=== PATIENT | female | born 1965 | race Caucasian/White ===

== ENCOUNTER 2019-04-18 22:31 | Outpatient (REF) | payer OTHER, SELFPAY ==
[2019-04-18 21:31] LABS: ALT 19 U/L (14-59); Anion Gap 8.2 mmol/L (3-11); BUN 18 mg/dL (7-18); CO2 29.8 mmol/L (21.0-32.0); CREATININE 0.76 mg/dL (0.55-1.02); Calcium 9.6 mg/dL (8.5-10.1); Chloride 105 mmol/L (98-107); Glucose 103 mg/dL (70-100); Potassium 4.4 mmol/L (3.5-5.1); Sodium 143 mmol/L (136-145); TSH 1.98 uIU/mL (0.36-3.74)
[2019-04-19 08:51] LABS: Ferritin 204 ng/mL (8-388)
== END 2019-04-18 22:51 ==
LOC: NCHCN 22:31
PROVIDERS: PCP Internal Medicine; Visit Provider Internal Medicine
DX: E03.9 Hypothyroidism, unspecified (principal); E55.9 Vitamin D deficiency, unspecified; G47.00 Insomnia, unspecified; E61.1 Iron deficiency; Z98.84 Bariatric surgery status
CPT/HCPCS: 80048; 82306; 82728; 84443; 84460

== ENCOUNTER 2020-11-03 18:51 | Outpatient (REF) | payer OTHER, SELFPAY ==
[2020-11-03 19:36] LABS: HCT 39.4 % (36.0-46.0); HGB 13.3 g/dL (11.2-15.7); MCH 29.4 pg (27.0-33.0); MCHC 33.8 % (32.0-36.0); MPV 10.9 fL (8.0-11.0); Platelet Count 249 10^3/uL (130-400); RBC 4.53 10^6/uL (3.93-5.22); RDW 13.3 % (11.7-14.6); RDW-SD 42.4 fL; WBC 6.44 10^3/uL (4.4-10.8)
[2020-11-03 20:09] LABS: Anion Gap 9.3 mmol/L (3-11); BUN 19 mg/dL (7-18); CO2 27.7 mmol/L (21.0-32.0); CREATININE 0.9 mg/dL (0.55-1.02); Chloride 107 mmol/L (98-107); Glucose 98 mg/dL (74-106); Potassium 4.1 mmol/L (3.5-5.1); Sodium 144 mmol/L (136-145); TSH 1.45 uIU/mL (0.36-3.74)
== END 2020-11-03 18:52 | disposition home or self-care (01) ==
LOC: NCHCN 18:51
PROVIDERS: PCP Internal Medicine; Visit Provider Internal Medicine
DX: R73.03 Prediabetes (principal); G43.909 Migraine, unspecified, not intractable, without status migrainosus; Z98.84 Bariatric surgery status
CPT/HCPCS: 80048; 85027; 84443

== ENCOUNTER 2020-11-12 17:11 | Outpatient (REF) | payer OTHER, SELFPAY ==
[2020-11-13 01:45] LABS: COVID-19 RT-PCR UVMMC Result Negative (Negative)
== END 2020-11-12 17:12 | disposition home or self-care (01) ==
LOC: NCHCN 17:11
PROVIDERS: PCP Internal Medicine; Visit Provider Nurse Practitioner Family
DX: Z20.822 Contact with and (suspected) exposure to COVID-19 (principal); J06.9 Acute upper respiratory infection, unspecified
CPT/HCPCS: U0003

== ENCOUNTER 2021-04-08 19:27 | Outpatient (REF) | payer OTHER, SELFPAY ==
[2021-04-09 21:00] LABS: COVID-19 RT-PCR UVMMC Result Negative (Negative)
== END 2021-04-08 19:28 | disposition home or self-care (01) ==
LOC: NCHCN 19:27
PROVIDERS: PCP Internal Medicine; Visit Provider Internal Medicine
DX: Z20.822 Contact with and (suspected) exposure to COVID-19 (principal); J06.9 Acute upper respiratory infection, unspecified
CPT/HCPCS: U0003

== ENCOUNTER 2022-04-12 09:11 | Emergency (ER) | payer OTHER, SELFPAY ==
[2022-04-12 09:14] VITALS: BP 156/99; PULSE 67; RESP 16; TEMP 36.3; O2SAT 98
--- NOTE | 2022-04-12 09:45 | DI.CT_ITS ---
Exam(s) CT HEAD WO EXAM: CT HEAD WO CLINICAL HISTORY: fall into wall. TECHNIQUE: Imaging Protocol: Axial computed tomography images with coronal and sagittal reformatted images were created and reviewed COMPARISON: No exams were available for comparison FINDINGS: Ventricles and Extra axial spaces: Normal in size and morphology for the patient's age. Hemorrhage: None. Cerebral parenchyma: Normal. Midline shift: None. Brainstem/Cerebellum: Normal. Calvarium: Normal. Visualized Paranasal sinuses/Mastoids: Clear. Soft Tissues: Unremarkable. IMPRESSION: No acute intracranial process. RADIATION DOSE DELIVERED: 845.91mGy.cm Total DLP DATA REPOSITORY: All CT scans at this facility are submitted to the National Radiology Data Registry (NRDR) Dose Index Registry (DIR) with the [employer] ([employer]). RADIATION OPTIMIZATION: All CT scans at this facility use at least one of these dose optimization te chniques: automated exposure control; mA and/or kV adjustment per patient size (includes targeted exa ms where dose is matched to clinical indication); or iterative reconstruction.
--- NOTE | 2022-04-12 09:45 | DI.RAD_ITS ---
Exam(s) XR WRIST RT COMPLETE EXAM: XR WRIST RT COMPLETE CLINICAL HISTORY: YANELIS. TECHNIQUE: 2D digital imaging was performed. Three views. COMPARISON: No exams were available for comparison FINDINGS: BONES: No acute fracture is present. No bony destructive lesion is seen. JOINTS: The carpal bones are normally aligned. SOFT TISSUE: Normal. IMPRESSION: Unremarkable radiographs of the right wrist. DATA REPOSITORY: RADIATION DOSE DELIVERED:
--- NOTE | 2022-04-12 09:45 | DI.RAD_ITS ---
Exam(s) XR WRIST LT COMPLETE EXAM: XR WRIST LT COMPLETE CLINICAL HISTORY: YANELIS, julianna 9 wk ago rad and ulna. TECHNIQUE: 2D digital imaging was performed. Three views. COMPARISON: No exams were available for comparison FINDINGS: BONES: There is a fracture seen extending mainly transversely through the distal radial metaphysis. The fracture may extend to the articular surface but there is no significant separation. There is mi ld impaction. There is an ulnar styloid fracture. No carpal bone fracture is seen. No bony destruc tive lesion is seen. JOINTS: The carpal bones are normally aligned. SOFT TISSUE: Normal. IMPRESSION: fractures of the distal radius and ulnar styloid. DATA REPOSITORY: RADIATION DOSE DELIVERED:
--- NOTE | 2022-04-12 09:45 | DI.RAD_ITS ---
Exam(s) XR FINGER LT MIDDLE EXAM: XR FINGER LT MIDDLE CLINICAL HISTORY: FOOSH. TECHNIQUE: 2D digital imaging was performed. Three views. COMPARISON: None. FINDINGS: BONES: Nondisplaced fracture volar plate middle phalanx. No bony destructive lesion is seen. JOINTS: No dislocation present. SOFT TISSUE: Normal. IMPRESSION: Nondisplaced fracture volar plate middle phalanx. DATA REPOSITORY: RADIATION DOSE DELIVERED:
--- NOTE | 2022-04-12 09:48 | W.ED.GENAD ---
Discharge Plan Disposition Patient Disposition: HOME Condition: Good Discharge Details Clinical Impression: Finger fracture, left, Fracture of wrist, Abrasion of face, Concussion Primary Care Provider: Stu Rodriguez ED Provider: Court Nichole Home Meds and New Rx's Prescriptions: Continued meloxicam 7.5 mg Tablet 7.85 mg PO DAILY Rx Instructions: take HS sertraline 50 mg Tablet 50 mg PO DAILY cetirizine [Zyrtec] 10 mg Tablet 10 mg PO DAILY omeprazole 20 mg Capsule,Delayed Release(Dr/Ec) 20 mg PO DAILY calcium carbonate-vitamin D2 600 mg calcium- 200 unit Tablet 1 tab PO DAILY spironolactone 50 mg Tablet 50 mg PO DAILY B12 Active 1,000 mcg Tablet,Chewable 1,000 mcg PO DAILY Discharge Instructions Instructions: Finger Fracture (ED), Concussion (ED) Additional Instructions: As discussed, the imaging of your brain was normal. However, given your headache and mechanism of injury, I am concerned that you may have a mild concussion. Please encourage hydration. Please encourage brain rest and get plenty of sleep. Use Tylenol and ibuprofen as needed for discomfort. Please follow-up with your primary care in the next 1 to 2 weeks for reevaluation after head injury. X-rays of your right wrist do not show any evidence of fracture or dislocation, this is likely associated with contusion and sprain. Your left wrist is more difficult to assess given your recent fractures. As discussed, please reapply the brace that was given to recently by orthopedics and continue to wear this until you are reevaluated by orthopedics at your upcoming appointment on . You did also suffer a small fracture in your left middle finger. Please continue with the brace until cleared by orthopedics. I have asked our diagnostic imaging team to send all the x-rays to [facility] so they are able to evaluate these at your upcoming appointment. Please keep your abrasions clean and dry. Monitor for signs of infection occluding redness, warmth, drainage, increased pain, fever/chills. He develops these or the new/worsening symptoms to seek care urgently once again. Referrals: Stu Rodriguez [Primary Care Provider] - Medical Decision Making Patient is a pleasant 57-year-old female presenting today with chief complaint of bilateral wrist pain, head injury, left middle finger injury. She reports about 40 minutes prior to arrival she was walking up some stairs when she caught her foot on the last step and fell forward striking her head against the wall in front of her. She denies any loss of consciousness. Denies any nausea or vomiting. Has been ambulatory since then. Patient is not anticoagulated. She denies any history of intracranial hemorrhage. He is having fairly significant headaches. No change in vision. Denies any sensory or motor dysfunction since fall. She also endorsing bilateral wrist pain, left greater than right. Of note, patient did suffer a reported radial and ulnar fracture to the left wrist about 9 weeks ago. She states that she has a follow-up appointment scheduled with orthopedics this . Was treated nonoperatively. Is not currently in any splint. Also history injury to left middle finger, pain maximal over the proximal phalanx and PIP joint. Did suffer small abrasion over the DIP joint. Denies any neck pain, back pain, chest pain, shortness of breath. Last tetanus was in 2019. On exam, patient appears nontoxic. She does have abrasions and swelling as indicated in the physical exam section between her eyebrows down the bridge of her nose. No deep wound, laceration, active bleeding. Extraocular movements are intact, normal neurologic exam. She also has pain with palpation over the top of her scalp but no objective evidence of trauma in this area. No palpable skull fractures. No epistaxis or hemotympanum. No C-spine tenderness, full range of motion. No pain in her chest with palpation. Breathing unlabored with stable vital signs. Exam of both wrist reveal pain with palpation over the dorsal aspect. Neither have pain with palpation over the anatomical snuffbox or with axillary thumb loading. She is full range of motion bilaterally but more pain is elicited on the left side than the right. Bilateral elbows are full range of motion with no pain on palpation. She also has a small abrasion on the DIP joint of the left middle finger and pain over the PIP joint but no evidence of ligamentous exam. Mechanism and exam have low likelihood for intracranial hemorrhage. However, patient's severity of discomfort and description of pain that have been consistent with metabolic depression I do feel that imaging would be appropriate. Will obtain Noncon head CT as well as x-rays of the patient's wrist. We will wash her wounds and give APAP for discomfort. If CT negative forbleed, will augment with NSAID. FINDINGS: Ventricles and Extra axial spaces: Normal in size and morphology for the patient's age. Hemorrhage: None. Cerebral parenchyma: Normal. Midline shift: None. Brainstem/Cerebellum: Normal. Calvarium: Normal. Visualized Paranasal sinuses/Mastoids: Clear. Soft Tissues: Unremarkable. IMPRESSION: No acute intracranial process. FINDINGS: BONES: Nondisplaced fracture volar plate middle phalanx.? No bony destructive lesion is seen. JOINTS: No dislocation present. SOFT TISSUE: Normal. IMPRESSION: Nondisplaced fracture volar plate middle phalanx. BONES: There is a fracture seen extending mainly transversely through the distal radial metaphysis.? The fracture may extend to the articular surface but there is no significant separation.? There is mild impaction.? There is an ulnar styloid fracture.? No carpal bone fracture is seen.? No bony destructive lesion is seen. JOINTS: The carpal bones are normally aligned. SOFT TISSUE: Normal. IMPRESSION: ?fractures of the distal radius and ulnar styloid BONES: No acute fracture is present. No bony destructive lesion is seen. JOINTS: The carpal bones are normally aligned. SOFT TISSUE: Normal. IMPRESSION: Unremarkable radiographs of the right wrist. Discussed these findings with the patient. Given her recent history of left ulnar and radial fractures, unclear if these are new fractures or old fractures. She does have a custom brace for her known fractures at home with orthopedics, patient will hold off on any immobilizing Pradaxa while here. She has family is going to drive her home and she feels that she is able to keep this immobilized so that she can then apply her other brace at home. She is to /l/ brace for her finger. Encourage rest, ice, elevation. Tylenol and ibuprofen as needed for discomfort. We did discuss the findings of her right wrist as well as head CT. We did discuss care of her abrasions, these were cleaned here by nursing staff. I encouraged brain rest. Patient did ask about return to work. She was working with her recent wrist fractures, was able to continue to use her immobilizing brace and avoid heavy lifting. I encouraged that she continue with this practice. Encourage that she follow-up with primary care regarding her concussion. She has an appointment on with orthopedics for routine follow-up of her her fracture but I asked that she call ahead of time to let them know about her new fracture as well as repeat injury. Return precautions were discussed. All of her questions and concerns were addressed and she is in agreement this plan. HPI General Date/Time Provider Initiated Documentation: 04/12/22 09:13. Limitations to Documentation: no limitations. Information obtained by: patient and RN notes reviewed. History of Present Illness 57 year old F presents to the emergency department with the chief complaint of Headache, bilateral wrist pain, left middle finger pain, abrasions, described as severe, with intensity rated at 7. Quality is described as aching, and is localized to the head, left, right and upper extremity. Patient reports no radiation. Patient started experiencing this minute(s) (40) and it has been constant. Immobilization improves symptom(s), Movement worsens symptoms . Patient notes headaches; denies chest pain, cough, fever/chills, loss of appetite, nausea/vomiting and shortness of breath. Patient did receive the following treatments prior to arrival, none Related Data Home Medications Medication Instructions Recorded Confirmed calcium carb-ergocalciferol (vit 1 tab PO DAILY 04/12/22 04/12/22 D2) 600 mg calcium-200 unit tablet cetirizine 10 mg tablet (Zyrtec) 10 mg PO DAILY 04/12/22 04/12/22 mecobalamin (vitamin B12) 1,000 1,000 mcg PO DAILY 04/12/22 04/12/22 mcg chewable tablet (B12 Active) meloxicam 7.5 mg tablet 7.85 mg PO DAILY 04/12/22 04/12/22 omeprazole 20 mg capsule,delayed 20 mg PO DAILY 04/12/22 04/12/22 release sertraline 50 mg tablet 50 mg PO DAILY 04/12/22 04/12/22 spironolactone 50 mg tablet 50 mg PO DAILY 04/12/22 04/12/22 Allergies Allergy/AdvReac Type Severity Reaction Status Date / Time rosuvastatin [From Crestor] AdvReac Intermediate Skin Rash Unverified 04/12/22 09:53 codeine AdvReac Mild Other (See Unverified 04/12/22 09:53 Comment) morphine AdvReac Mild Other (See Unverified 04/12/22 09:53 Comment) General Stated Complaint: Trauma BRADEN: 3 Review of Systems Constitutional Constitutional: Reports as per HPI, Denies chills, Denies fever(s) and Denies weakness Cardiovascular Cardiovascular: Reports as per HPI Respiratory Respiratory: Reports as per HPI and Denies cough Musculoskeletal Musculoskeletal: Reports as per HPI and Denies tingling Integumentary/Breasts Skin/Breast: Reports as per HPI Neurologic Neurologic: Reports as per HPI, Denies tingling, Denies paresthesias and Denies weakness PFS All Active Problems (Updated 04/12/22 @ 11:08 by SHAYY Bates) Finger fracture, left (Acute) Fracture of wrist (Acute) Abrasion of face (Acute) Concussion (Acute) Social History Smoking/Tobacco Use Status: Never Smoking risk assessment performed?: Yes Alcohol Intake: current Alcohol Intake frequency: a few times a month Alcohol type: other Drug use: Never Substance use type: does not use Do you feel safe at home: Yes Do you feel safe in your relationship?: Yes Exam Const General: cooperative, healthy appearing, comfortable, no acute distress, well developed and well groomed Nutritional Appearance: well nourished and overweight Orientation: alert and awake [facility] Head: no palpable skull fracture, no Saravia's sign, no hematomas, no lacerations, no occipital foramen tenderness, no palpable skull fracture, no raccoon eyes, no scalp lesions and scalp tenderness (Patient is tender on top of her scalp with no swelling, ecchymosis, lacerat) Ears: hearing grossly normal bilaterally and TM's normal bilaterally General nose exam: nares normal, no nasal polyps, septum normal, no nasal discharge and other (Abrasion at the bridge of her nose, no active bleeding, associated swelling) Face and sinus: normal facial exam, sinuses nontender and tenderness Face images: 1. Area of swelling, tenderness and abrasion. No active bleeding. Extraoculars are intact, no eye involvement. No deep lacerations. No epistaxis. No palpable deformity or displacement of the nose Mouth: oral mucosae normal, lip normal, tongue normal and No restricted motion Teeth and gingiva: dentition normal (Edentulous on the top, lower teeth intact, nontender) Eyes General: appearance normal, both eyes and all related structures Pupils: PERRL, normal by confrontation and accommodation normal EOM: EOM intact bilaterally Neck Neck: normal visual inspection and full ROM Chest Chest: normal inspection of the chest and no tenderness Resp Effort & Inspection: normal respiratory effort, able to speak in complete sentences and no respiratory distress Cardio Rate: regular rate Rhythm: regular rhythm Skin Trauma: abrasion Neuro General: patient alert and patient awake Cranial Nerves: CN's II-XI intact bilaterally Cognition: normal cognition Speech: speech normal Gait: normal gait Motor: muscle tone normal throughout Sensory Exam: no sensory deficits noted Extrem Hand/finger images: 1. Area of discomfort on the right side. She is forage motion. 2+ distal pulses. Sensation is intact. Normal neurologic exam. No snuffbox tenderness or pain with axillary thumb loading. 2. Area of maximal discomfort. Pain primarily Kressa posterior aspect. Full range of motion but pain at extremes of flexion and extension. No palpable deformity, objective swelling. 2+ distal pulses. No pain with palpation over the anatomical snuffbox, no pain with axial thumb loading. 3. Area of discomfort. 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 Intact capillary refill. Sensation is intact. She is ligamentously intact and able to flex and extend at all joints against medical point although this does elicit some discomfort. She does have a small area of dried blood over the DIP but no notable wound. No pain with palpation elsewhere about the hand. Psych Appearance: grossly normal and well kempt Mental Status: mental status grossly normal Speech and Movement: speech and movement normal Course Vital Signs Vital signs: Vital Signs Temperature 36.3 C L 04/12/22 09:14 Pulse 67 04/12/22 09:14 Respiratory Rate 16 04/12/22 09:14 Blood Pressure 156/99 H 04/12/22 09:14 Pulse Oximetry 98 04/12/22 09:14 Temperature 36.3 C L 04/12/22 09:14 Temperature Source Temporal Artery Scan 04/12/22 09:14 Pulse 67 04/12/22 09:14 Respiratory Rate 16 04/12/22 09:14 Respiratory Effort Non-Labored 04/12/22 09:28 Respiratory Depth Normal 04/12/22 09:28 Respiratory Pattern Normal 04/12/22 09:28 Blood Pressure 156/99 H 04/12/22 09:14 Blood Pressure Position Supine 04/12/22 09:14 Pulse Oximetry 98 04/12/22 09:14 Oxygen Delivery Method Room Air 04/12/22 09:14 Oxygen Flow Rate 0 04/12/22 09:14 PAWSS Have you Been Recently Intoxicated or Drunk Within the Last 30 days?: No Have you Ever Experienced Previous Episodes of Alcohol Withdrawal?: No Have you ever Experienced Withdrawal Seizures?: No Have you ever Experienced Delirium Tremens(DT)s?: No Have you ever undergone Alcohol Rehabilitation Treatment (i.e, inpt ot outpatient treatment programs)?: No Have you ever Experienced Blackouts?: No Have you ever Combined Alcohol with other Downers within the last 90 days?: No Have you ever Combined Alcohol with any other Substance of Abuse during the last 90 days?: No Result: 0
[2022-04-12] MEDS: Acetaminophen 500 MG TAB 1000 MG PO (09:57)
[2022-04-12] MEDS: Ibuprofen 600 MG TAB PO (11:04)
== END 2022-04-12 11:30 | disposition home or self-care (01) ==
PROVIDERS: Emergency Provider Physician Assistant; PCP Internal Medicine
DX: S62.633A Displaced fracture of distal phalanx of left middle finger, initial encounter for closed fracture (principal); S62.102A Fracture of unspecified carpal bone, left wrist, initial encounter for closed fracture; S62.101A Fracture of unspecified carpal bone, right wrist, initial encounter for closed fracture; S00.81XA Abrasion of other part of head, initial encounter; S06.0X0A Concussion without loss of consciousness, initial encounter; W22.01XA Walked into wall, initial encounter; W10.9XXA Fall (on) (from) unspecified stairs and steps, initial encounter; Y93.01 Activity, walking, marching and hiking
CPT/HCPCS: 99284; 70450; 73110; 73140; 99283

== ENCOUNTER 2022-07-09 12:51 | Outpatient (REF) | payer BC, SELFPAY ==
[2022-07-09 19:29] LABS: Anion Gap 8.5 mmol/L (3-11); BUN 14 mg/dL (7-18); CO2 27.5 mmol/L (21.0-32.0); CREATININE 0.8 mg/dL (0.55-1.02); Calcium 9.6 mg/dL (8.5-10.1); Chloride 102 mmol/L (98-107); Estimated GFR 86.42 (mL/min/1.73m2); Glucose 208 mg/dL (74-106); Potassium 4.2 mmol/L (3.5-5.1); Sodium 138 mmol/L (136-145)
[2022-07-09 19:50] LABS: Vitamin D 25 Total 51.2 ng/mL (30-100)
== END 2022-07-09 12:52 | disposition home or self-care (01) ==
LOC: NCHCN 12:51
PROVIDERS: PCP Internal Medicine; Visit Provider Internal Medicine
DX: E11.9 Type 2 diabetes mellitus without complications (principal); F32.0 Major depressive disorder, single episode, mild; M81.0 Age-related osteoporosis without current pathological fracture; M19.90 Unspecified osteoarthritis, unspecified site
CPT/HCPCS: 80048; 82306; 84443

== ENCOUNTER 2023-11-09 17:58 | Outpatient (REF) | payer BC, SELFPAY ==
[2023-11-09 20:09] LABS: COMMENT (LAB VIEW ONLY) 299.26 mg/dL; Microalb ug/mg Crea 2.7 ug/mg Cr
[2023-11-09 20:10] LABS: ALT 35 U/L (14-59); AST 17 U/L (15-37); Albumin 4.1 g/dL (3.4-5.0); Alkaline Phosphatase 143 U/L (46-116); Anion Gap 10.7 mmol/L (3-11); BUN 20 mg/dL (7-18); Bilirubin, Total 0.3 mg/dL (0.2-1.0); CO2 27.3 mmol/L (21.0-32.0); CREATININE 1.2 mg/dL (0.55-1.02); Calcium 9.6 mg/dL (8.5-10.1); Calculated LDL 156 mg/dL (<100); Chloride 104 mmol/L (98-107); Cholesterol 267 mg/dL (<200); Creatine Kinase 130 U/L (26-192); Glucose 127 mg/dL (74-106); HDL Cholesterol 80 mg/dL (40-60); Potassium 4.5 mmol/L (3.5-5.1); Sodium 142 mmol/L (136-145); Total Protein 7.6 g/dL (6.4-8.2); Triglyceride 156 mg/dL (<150)
== END 2023-11-09 17:59 | disposition home or self-care (01) ==
LOC: NCHCN 17:58
PROVIDERS: PCP Internal Medicine; Visit Provider Internal Medicine
DX: E11.9 Type 2 diabetes mellitus without complications (principal); E78.5 Hyperlipidemia, unspecified
CPT/HCPCS: 80053; 80061; 82550; 82043; 82570

== ENCOUNTER 2025-02-18 18:40 | Outpatient (REF) | payer OTHER, SELFPAY ==
[2025-02-18 20:00] LABS: HCT 43.4 % (36.0-46.0); HGB 14.3 g/dL (11.2-15.7); MCH 29.6 pg (27.0-33.0); MCHC 32.9 % (32.0-36.0); MCV 90 fL (80-95); MPV 10.4 fL (8.0-11.0); Platelet Count 246 10^3/uL (130-400); RBC 4.83 10^6/uL (3.93-5.22); RDW 12.9 % (11.7-14.6); RDW-SD 42.5 fL; WBC 5.71 10^3/uL (4.4-10.8)
[2025-02-18 20:12] LABS: ALT 32 U/L (14-59); AST 25 U/L (15-37); Albumin 4.2 g/dL (3.4-5.0); Alkaline Phosphatase 150 U/L (46-116); Bilirubin, Direct 0.1 mg/dL (0.0-0.2); Bilirubin, Total 0.6 mg/dL (0.2-1.0); Total Protein 7.9 g/dL (6.4-8.2)
== END 2025-02-18 18:41 | disposition home or self-care (01) ==
LOC: NCHCN 18:40
PROVIDERS: PCP Internal Medicine; Visit Provider Internal Medicine
DX: R10.11 Right upper quadrant pain (principal)
CPT/HCPCS: 80076; 85027

== ENCOUNTER 2025-06-10 19:33 | Outpatient (REF) | payer OTHER, SELFPAY ==
[2025-06-10 20:43] LABS: Microalb ug/mg Crea 1.9 ug/mg Cr
== END 2025-06-10 19:34 | disposition home or self-care (01) ==
LOC: NCHCN 19:33
PROVIDERS: PCP Internal Medicine; Visit Provider Physician Assistant
DX: E11.9 Type 2 diabetes mellitus without complications (principal)
CPT/HCPCS: 82043; 82570